=== PATIENT | male | born 1960 | race Caucasian/White ===

== ENCOUNTER 2018-04-01 15:23 | Emergency (ER) | payer MEDICAID ==
[~2018-04-01] VITALS: Ht 172.7 cm; Wt 79.4 kg
[~2018-04-01 15:23] MED LIST: ASPIR 8181 MG ORAL; JANUVIA100 MG ORAL; LISINOPRIL20 MG ORAL; METFORMIN HCL1000 M1 ORAL; PRAVASTATIN SOD20 M1 ORAL
[2018-04-01] MEDS ORDERED: Tetanus/Diptheria/Pertussis Vaccine 0.5ml Syr IM ONE (15:45)
[2018-04-01] MEDS ORDERED: Cephalexin 500mg cap ORAL ONE (15:45)
--- NOTE | 2018-04-01 15:53 | Emergency Room Report ---
History of Present Illness General Chief Complaint: Upper Extremity Injury Source: Patient Present Illness HPI Patient presents after a piece of concrete smashed his finger. Weight was about 80 pounds. Lost his nail. Bleeding was controlled with direct pressure. The pain is 10/10. He denies any numbness finger. It's been greater than 10 years since his last tetanus shot. Patient is right-handed. Seen here with [facility] 2016. H/O HTN. H/O DM. No somatic complaints. 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 Reviewed Nursing Documentation: PMH: Agreed; PSxH: Agreed Nursing Documentation-PMH Past Medical History: No History, Except For Hx Hypertension: Yes Hx Diabetes: Yes Review of Systems Constitutional: Denies: fever Musculoskeletal: Reports: see HPI Skin: Reports: see HPI Neurological: Reports: see HPI Endocrine: Reports: see HPI Hematologic/Lymphatic: Reports: see HPI Physical Exam Vital Signs Date Time Temp Pulse Resp B/P (MAP) Pulse Ox O2 Delivery O2 Flow Rate FiO2 04/01/18 15:34 98.3 79 16 124/87 95 Room Air 98.2 Sp02 EP Interpretation: reviewed, normal General Appearance: well appearing, no apparent distress, GCS 15 Head: normocephalic, atraumatic Eyes: bilateral eye normal inspection, bilateral eye PERRL ENT: hearing grossly normal, normal voice, moist mucus membranes Neck: full range of motion, supple Respiratory: no respiratory distress, speaking full sentences Cardiovascular #1: regular rate, rhythm Cardiovascular #2: 2+ radial (L) - good cap fill Gastrointestinal: normal inspection Musculoskeletal: back normal, gait/station normal, other - smashed fingertip with good vasc supply bilat. Nail avulsed. ROM good - tendons intact Neurologic: alert, oriented x3, motor strength/tone normal, sensory intact Psychiatric: mood/affect normal Skin: warm/dry, laceration - distal L middle finger, nail avulsed, bed without trauma Procedures Laceration/Wound Repair Laceration/Wound Repair : Consent: Verbal Wound Location: upper extremity Wound's Depth, Shape: irregular, flap, nail-avulsed, contused tissue Wound Length (cm): 2 Wound Explored: clean Irrigated w/ Saline (ccs): 40 Betadine Prep?: Yes Anesthesia: 0.5% Sensorcaine Volume Anesthetic (ccs): 3 Wound Debrided: moderate Wound Repaired With: sutures Suture Size/Type: 5:0, nylon Sterile Dressing Applied?: Yes Splint Applied?: No Sling Applied?: Yes Patient Tolerated: Well Complications: None Medical Decision Making Diagnostic Impression: Primary Impression: Crush injury to finger Qualified Codes: S67.10XA - Crushing injury of unspecified finger(s), initial encounter Additional Impressions: Open fracture Nail avulsion ER Course Patient presents with left middle finger crush injury. Differential includes open fracture, laceration, crush injury amongst others. X-rays indicated. In addition the patient will receive a digital block with bupivacaine. Also the patient will receive tetanus and also Keflex. Sutures are indicated. See procedure note. Some avulsed skin non-viable. debrided. Tolerated well. Discussed treatment plan. Improved with sling and dressing. Neurovasc checked by me - digital block still in effect. Patient stable for outpatient observation and treatment. Other X-Ray Diagnostic Results Other X-Ray Diagnostic Results : X-Ray ordered: left-hand # of Views/Limited Vs Complete: 3 View Indication: Other EP Interpretation: Yes Interpretation: no dislocation, other - fx STS Impression: Other Electronically Signed by: Electronically signed by Norman Gomez MD Last Vital Signs Date Time Temp Pulse Resp B/P (MAP) Pulse Ox O2 Delivery O2 Flow Rate FiO2 04/01/18 17:25 98.2 85 16 118/79 99 Room Air 208.8 Status: improved Disposition: HOME, SELF-CARE Condition: Improved Scripts Ibuprofen* (MOTRIN*) 600 Mg Tablet 600 MG ORAL Q6H PRN for For Pain, #16 TAB Prov: Norman Gomez M.D. 04/01/18 Tramadol Hcl* (ULTRAM*) 50 Mg Tablet 50 MG ORAL Q6H PRN for For Pain, #14 TAB 0 Refills Prov: Norman Gomez M.D. 04/01/18 Cephalexin* (KEFLEX*) 500 Mg Capsule 500 MG ORAL EVERY 6 HOURS, #28 CAP Prov: Norman Gomez M.D. 04/01/18 Norman Gomez M.D. Apr 01, 2018 15:53
[2018-04-01 16:27] VITALS: BP 118/79
--- NOTE | 2018-04-01 16:57 | Diagnostic Imaging Report ---
EXAM: XR Left Hand Complete, 3 or More Views CLINICAL HISTORY: TRAUMA TECHNIQUE: Frontal, lateral and oblique views of the left hand. COMPARISON: No relevant prior studies available. FINDINGS: Bones/joints: Minimally displaced, comminuted fracture of the distal tuft of the third digit distal phalanx. No other acute displaced fracture or dislocation identified. Mild degenerative narrowing in the interphalangeal joints. Soft tissues: Soft tissue swelling along the distal tip of the third digit. No radiopaque foreign body. Atherosclerotic calcifications in the wrist. IMPRESSION: 1. Minimally displaced, comminuted fracture of the distal tuft of the third digit distal phalanx. 2. Soft tissue swelling along the distal tip of the third digit.
[2018-04-01] MEDS ORDERED: traMADol 50mg tab ORAL ONE (17:15)
[2018-04-01] MEDS ORDERED: Bacitracin Oint UD TOPIC ONE ×2 (17:15)
[2018-04-01] MEDS ORDERED: IBUPROFEN600 MG ORAL (17:20)
[2018-04-01] MEDS ORDERED: TRAMADOL HCL50 MG ORAL (17:20)
[2018-04-01] MEDS ORDERED: CEPHALEXIN500 MG ORAL (17:20)
[2018-04-01 17:25] VITALS: BP 118/79
== END 2018-04-01 17:25 | disposition home or self-care (01) ==
LOC: EMR 16:00
DX: S61.213A Laceration without foreign body of left middle finger without damage to nail, initial encounter (principal); S62.602A Fracture of unspecified phalanx of right middle finger, initial encounter for closed fracture; W22.8XXA Striking against or struck by other objects, initial encounter; Y93.89 Activity, other specified; Y92.9 Unspecified place or not applicable; Z23 Encounter for immunization; E11.9 Type 2 diabetes mellitus without complications; I10 Essential (primary) hypertension
CPT/HCPCS: 12001; 73130; 90471; 90715; 99283; Z7502

== ENCOUNTER 2018-04-09 09:45 | Emergency (ER) | payer MEDICAID ==
[~2018-04-09] VITALS: Ht 167.6 cm; Wt 79.4 kg
[~2018-04-09 09:45] MED LIST changes: +CEPHALEXIN500 MG ORAL; +IBUPROFEN600 MG ORAL; +TRAMADOL HCL50 MG ORAL
[2018-04-09 09:59] VITALS: BP 174/90
[2018-04-09] MEDS ORDERED: Bacitracin Oint UD TOPIC ONE ×2 (10:15→10:16)
[2018-04-09 10:22] VITALS: BP 174/90
--- NOTE | 2018-04-09 10:30 | Emergency Room Report ---
History of Present Illness General Chief Complaint: Wound Recheck/Suture Removal Source: Patient, Medical Record Present Illness HPI Patient is a 57-year-old male who presented for wound check. The patient denied any severe pain. He had not been having any increased discharge or fever. Patient had been advised to return for suture removal. The patient has sutures placed approximately one week ago. Allergies: Coded Allergies: No Known Allergies (Unverified , 09/16/15) Patient History Past Medical History: see triage record Reviewed Nursing Documentation: PMH: Agreed; PSxH: Agreed Nursing Documentation-PMH Past Medical History: No History, Except For Hx Hypertension: Yes Hx Diabetes: Yes Review of Systems All Other Systems: negative except mentioned in HPI Physical Exam Vital Signs Date Time Temp Pulse Resp B/P (MAP) Pulse Ox O2 Delivery O2 Flow Rate FiO2 04/09/18 09:51 98.6 86 18 174/90 98 Room Air 98.6 General Appearance: well appearing, no apparent distress, alert, GCS 15 Head: normocephalic, atraumatic ENT: hearing grossly normal, normal voice Neck: full range of motion, supple Respiratory: no respiratory distress, speaking full sentences Musculoskeletal: normal inspection, other - healing wound, no infection Neurologic: alert, oriented x3, normal gait Psychiatric: mood/affect normal Skin: no rash, other - healed laceration, no infection Medical Decision Making Diagnostic Impression: Primary Impression: Encounter for removal of sutures ER Course Patient presented for wound check. Differential diagnosis included healed wound , cellulitis, wound dehiscence among others. The sutures were removed by me. The patient is advised to follow up with primary care doctor in 3-4 days for wound check. The patient is advised to keep the wound covered. Patient is advised to return if any worsening condition or if any changes in status that are concerning. Last Vital Signs Date Time Temp Pulse Resp B/P (MAP) Pulse Ox O2 Delivery O2 Flow Rate FiO2 04/09/18 10:22 98.6 86 18 174/90 98 Room Air 98.6 Status: improved Disposition: HOME, SELF-CARE Condition: Stable [facility]errals: [facility] (PCP) Patient Instructions: Suture Removal, Care After Aydin Castorena MD Apr 09, 2018 10:30
== END 2018-04-09 10:23 | disposition home or self-care (01) ==
LOC: EMR 10:15
DX: Z48.02 Encounter for removal of sutures (principal); I10 Essential (primary) hypertension; E11.9 Type 2 diabetes mellitus without complications
CPT/HCPCS: 99282

== ENCOUNTER 2019-01-07 23:31 | Emergency (ER) | payer MEDICAID ==
[~2019-01-07] VITALS: Ht 167.6 cm; Wt 77.1 kg
[2019-01-07] MEDS ORDERED: METOPROLOL TART25 MG ORAL (23:46)
[2019-01-07 23:50] VITALS: BP 198/93
--- NOTE | 2019-01-07 23:50 | NUR ---
ED Nurse Note: Pt ambulated to ED from home c/o 04/05 abdominal pain since 2099 today. Pt is A&Ox4, deneis sob or chest pain, VSS except for BP 200/79
[2019-01-08] MEDS ORDERED: Ketorolac 30mg Inj IV ONE
--- NOTE | 2019-01-08 00:05 | NUR ---
ED Nurse Note: IV ACCESS ESTABLISHED. BLOOD COLLECTED; SENT DOWN TO LAB.
[2019-01-08 00:20] LABS: BASOPHILS % (AUTO) 0.5 % (0.0-2.0); EOSINOPHILS % (AUTO) 1.2 % (0.0-3.0); HEMOGLOBIN 14.6 G/DL (14.2-18.0); LYMPHOCYTES % (AUTO) 27.3 % (20.0-45.0); MEAN CORPUSCULAR VOLUME 86 FL (80-99); MONOCYTES % (AUTO) 7.7 % (1.0-10.0); NEUTROPHILS % (AUTO) 63.3 % (45.0-75.0); PLATELET COUNT 200 K/UL (150-450); RED BLOOD COUNT 5.12 M/UL (4.70-6.10); RED CELL DISTRIBUTION WIDTH 12.4 % (11.6-14.8); WHITE BLOOD COUNT 9.2 K/UL (4.8-10.8)
--- NOTE | 2019-01-08 00:21 | Emergency Room Report ---
History of Present Illness General Chief Complaint: Abdominal Pain Source: Patient Present Illness HPI Patient presents with complaints of right flank and lower abdominal pain started approximately 9:00 this evening Pain is 8 out of 10 sharp denies any vomiting denies any diarrhea denies any constipation Denies any dysuria or frequency denies any rash Denies any trauma denies any change with position or exertion Allergies: Coded Allergies: No Known Allergies (Unverified , 09/16/15) Patient History Past Medical History: see triage record Pertinent Family History: none Reviewed Nursing Documentation: PMH: Agreed; PSxH: Agreed Nursing Documentation-PMH Past Medical History: No History, Except For Hx Hypertension: Yes Hx Diabetes: Yes Review of Systems All Other Systems: negative except mentioned in HPI Physical Exam Vital Signs Date Time Temp Pulse Resp B/P (MAP) Pulse Ox O2 Delivery O2 Flow Rate FiO2 01/07/19 23:43 98.4 70 14 198/93 (128) 95 Room Air Sp02 EP Interpretation: reviewed, normal General Appearance: well appearing, no apparent distress Head: normocephalic, atraumatic Eyes: bilateral eye PERRL, bilateral eye EOMI ENT: hearing grossly normal, normal pharynx, TMs + canals normal, uvula midline Neck: full range of motion, supple, no meningismus, no bony tend Respiratory: lungs clear, normal breath sounds, no rhonchi, no respiratory distress, no retraction, no accessory muscle use Cardiovascular #1: normal peripheral pulses, regular rate, rhythm, no edema, no gallop, no JVD, no murmur Gastrointestinal: normal bowel sounds, non tender, soft, no mass, no organomegaly, non-distended, no guarding, no hernia, no pulsatile mass, no rebound Genitourinary: no CVA tenderness Musculoskeletal: normal inspection Neurologic: oriented x3, responsive, 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, motor strength/ tone normal, sensory intact Psychiatric: mood/affect normal Skin: no rash Lymphatic: normal inspection, no adenopathy Medical Decision Making Diagnostic Impression: Primary Impression: Renal colic on right side ER Course With the history exam and presentation, multiple differentials considered, including but not limited to appendicitis, gastritis, cholecystitis, diverticulitis Patient's urine sample does show some evidence of blood CT imaging also reveals 4 mm kidney stone on the right side Patient's kidney function is mildly elevated does not appear septic or toxic was further hydrated On repeat evaluation and was discussed Regarding further inpatient care versus outpatient trial Patient has done significantly better and reports improved sensation and would like to attempt outpatient trial he will return with any worsening symptoms Labs Test 01/08/19 00:05 01/08/19 00:20 White Blood Count 9.2 K/UL (4.8-10.8) Red Blood Count 5.12 M/UL (4.70-6.10) Hemoglobin 14.6 G/DL (14.2-18.0) Hematocrit 44.0 % (42.0-52.0) Mean Corpuscular Volume 86 FL (80-99) Mean Corpuscular Hemoglobin 28.5 PG (27.0-31.0) Mean Corpuscular Hemoglobin Concent 33.2 G/DL (32.0-36.0) Red Cell Distribution Width 12.4 % (11.6-14.8) Platelet Count 200 K/UL (150-450) Mean Platelet Volume 6.3 FL (6.5-10.1) Neutrophils (%) (Auto) 63.3 % (45.0-75.0) Lymphocytes (%) (Auto) 27.3 % (20.0-45.0) Monocytes (%) (Auto) 7.7 % (1.0-10.0) Eosinophils (%) (Auto) 1.2 % (0.0-3.0) Basophils (%) (Auto) 0.5 % (0.0-2.0) Sodium Level 137 MMOL/L (136-145) Potassium Level 4.5 MMOL/L (3.5-5.1) Chloride Level 102 MMOL/L (98-107) Carbon Dioxide Level 28 MMOL/L (21-32) Anion Gap 7 mmol/L (5-15) Blood Urea Nitrogen 26 mg/dL (7-18) Creatinine 1.4 MG/DL (0.55-1.30) Estimat Glomerular Filtration Rate 52.1 mL/min (>60) Glucose Level 254 MG/DL (74-106) Calcium Level 9.0 MG/DL (8.5-10.1) Total Bilirubin 0.2 MG/DL (0.2-1.0) Aspartate Amino Transf (AST/SGOT) 15 U/L (15-37) Alanine Aminotransferase (ALT/SGPT) 14 U/L (12-78) Alkaline Phosphatase 71 U/L (46-116) Total Protein 6.7 G/DL (6.4-8.2) Albumin 3.7 G/DL (3.4-5.0) Globulin 3.0 g/dL Albumin/Globulin Ratio 1.2 (1.0-2.7) Lipase 287 U/L (73-393) Urine Color Pale yellow Urine Appearance Clear Urine pH 7 (4.5-8.0) Urine Specific [place] 1.005 (1.005-1.035) Urine Protein 1+ (NEGATIVE) Urine Glucose (UA) 3+ (NEGATIVE) Urine Ketones Negative (NEGATIVE) Urine Blood 2+ (NEGATIVE) Urine Nitrite Negative (NEGATIVE) Urine Bilirubin Negative (NEGATIVE) Urine Urobilinogen Normal MG/DL (0.0-1.0) Urine Leukocyte Esterase Negative (NEGATIVE) Urine RBC 2-4 /HPF (0 - 0) Urine WBC 0 /HPF (0 - 0) Urine Squamous Epithelial Cells Few /LPF (NONE/OCC) Urine Bacteria Few /HPF (NONE) CT/MRI/US Diagnostic Results CT/MRI/US Diagnostic Results : Impression CT abdomen pelvisCT ABDOMEN & PELVIS Without Contrast: Right hydroureteronephrosis secondaryto a 4 mmstone in the right UVJ. Punctate nonobstructive stones bilaterally. Left kidneyis not dilated. Bladder is unremarkable. No bowel obstruction. Last Vital Signs Date Time Temp Pulse Resp B/P (MAP) Pulse Ox O2 Delivery O2 Flow Rate FiO2 01/07/19 23:50 98.4 70 14 198/93 95 Room Air Status: improved Disposition: HOME, SELF-CARE Condition: Improved Scripts Tamsulosin HCl (Flomax) 0.4 Mg Cap.er.24h 0.4 MG ORAL DAILY for 7 Days, CAP Prov: Becky Aguilar DO 01/08/19 Hydrocodone Bit/Acetaminophen 5-325* (NORCO 5-325*) 1 Each Tablet 1 TAB ORAL Q6H PRN for For Pain, #14 TAB 0 Refills Prov: Becky Aguilar DO 01/08/19 Ibuprofen* (MOTRIN*) 600 Mg Tablet 600 MG ORAL Q8H PRN for For Pain, #20 TAB 0 Refills Prov: Becky Aguilar DO 01/08/19 Referrals: [facility] (PCP) Additional Instructions: Patient is provided with the discharge instructions notified to follow up with primary doctor in the next 2-3 days otherwise return to the er with any worsening symptoms. Please note that this report is being documented using Status Overload technology. This can lead to erroneous entry secondary to incorrect interpretation by the dictating instrument. Becky Aguilar DO Jan 08, 2019 00:21
[2019-01-08 00:33] LABS: ANION GAP 7 mmol/L (5-15); BLOOD UREA NITROGEN 26 mg/dL (7-18); CARBON DIOXIDE 28 MMOL/L (21-32); CHLORIDE 102 MMOL/L (98-107); CREATININE 1.4 MG/DL (0.55-1.30); POTASSIUM 4.5 MMOL/L (3.5-5.1); SODIUM 137 MMOL/L (136-145)
[2019-01-08 00:38] LABS: ALANINE AMINOTRANSFERASE 14 U/L (12-78); ALBUMIN 3.7 G/DL (3.4-5.0); ALBUMIN/GLOBULIN RATIO 1.2 (1.0-2.7); ALKALINE PHOSPHATASE 71 U/L (46-116); ASPARTATE AMINO TRANSFERASE 15 U/L (15-37); BILIRUBIN,TOTAL 0.2 MG/DL (0.2-1.0)
[2019-01-08 00:45] LABS: APPEARANCE,URINE CLEAR; BILIRUBIN, URINE NEGATIVE (NEGATIVE); COLOR,URINE PALE YELLOW; GLUCOSE, URINE (UA) 3+ (NEGATIVE); KETONES,URINE NEGATIVE (NEGATIVE); LEUKOCYTE ESTERASE ,URINE NEGATIVE (NEGATIVE); NITRITE,URINE NEGATIVE (NEGATIVE); PH,URINE 7 (4.5-8.0); PROTEIN,URINE 1+ (NEGATIVE); UROBILINOGEN,URINE NORMAL MG/DL (0.0-1.0)
[2019-01-08] MEDS ORDERED: Tamsulosin 0.4mg cap ORAL ONE (01:44)
[2019-01-08] MEDS ORDERED: FLOMAX0.4 MG ORAL (02:32)
[2019-01-08] MEDS ORDERED: NORCO 5-325 TA1 EACH ORAL (02:32)
[2019-01-08] MEDS ORDERED: IBUPROFEN600 MG ORAL (02:32)
[2019-01-08 02:43] VITALS: BP 130/80
--- NOTE | 2019-01-08 02:46 | NUR ---
discharged home with instruction and rx denies any pain iv dcd intact ambulating steady gait ,home with family
--- NOTE | 2019-01-08 09:39 | Diagnostic Imaging Report ---
Indication: Right flank pain for one day Technique: Spiral acquisitions obtained through the abdomen and pelvis. No oral or IV contrast utilized, per urinary stone protocol. Multiplanar reconstructions were generated. Total dose length product 650.3 mGycm. CTDIvol(s) 11.8 mGy. Dose reduction achieved using automated exposure control Comparison: none Findings: A 5 mm calculus projects at the right ureteral orifice. There is mild right hydroureter and mild right hydronephrosis. There is a 6 mm intrarenal calculus on the right. There is a 3 mm intrarenal calyceal calculus on the left as well. No left hydronephrosis, hydroureter, or ureteral calculus. Lack of IV contrast limits assessment of the renal parenchyma. No gross renal parenchymal mass or cyst demonstrated. Lack of IV contrast limits assessment of the other solid organs. The liver, gallbladder, bile ducts, pancreas, spleen, adrenals are unremarkable. No retroperitoneal or mesenteric mass or adenopathy. No pelvic mass or adenopathy. The appendix is normal. No evidence of diverticulosis or diverticulitis. No small bowel distention. No free or loculated intraperitoneal gas or fluid is evident. The distal esophagus, stomach, duodenum are unremarkable. The included lung bases demonstrate posterior dependent atelectatic changes and groundglass opacity. The heart is upper limits normal in size. The bones demonstrate minimal lumbar degenerative proliferative change. Impression: Positive for 5 mm distal right ureteral calculus. This results in mild hydronephrosis and hydroureter Bilateral nonobstructive intrarenal calyceal calculi as described Incidental findings as noted This agrees with the preliminary interpretation provided overnight by [facility] teleradiology service. The CT scanner at [facility] is accredited by the [employer] and the scans are performed using protocols designed to limit radiation exposure to as low as reasonably achievable to attain images of sufficient resolution adequate for diagnostic evaluation.
[2019-01-08] MEDS ORDERED: Tamsulosin 0.4mg cap ORAL SCH (21:00)
== END 2019-01-08 02:47 | disposition home or self-care (01) ==
LOC: EMR 23:54
DX: N20.0 Calculus of kidney (principal); I10 Essential (primary) hypertension; E11.9 Type 2 diabetes mellitus without complications
CPT/HCPCS: 36415; 74176; 80053; 81003; 83690; 85025; 96374; 96375; 99284; J0360; J1885; J2405; J7040

== ENCOUNTER 2020-08-19 12:56 | Emergency (ER) | payer MEDICAID ==
[~2020-08-19] VITALS: Ht 167.6 cm; Wt 79.4 kg
[~2020-08-19 12:56] MED LIST changes: +FLOMAX0.4 MG ORAL; +METOPROLOL TART25 MG ORAL; +NORCO 5-325 TA1 EACH ORAL
[2020-08-19 13:00] VITALS: BP 142/78
--- NOTE | 2020-08-19 13:07 | NUR ---
ED Nurse Note: Patient from home and walked in due to right 5th digit injury while he was installing water yesterday. Noted small amount of blood and bruising on nail bed. AAO x4 and able to move his fingers without difficulty.
--- NOTE | 2020-08-19 13:32 | NUR ---
ED Nurse Note: orthopedic technician with the patient for xray.
--- NOTE | 2020-08-19 14:07 | Diagnostic Imaging Report ---
EXAM: X-RAY XRAY Fingers 2-3v R CLINICAL HISTORY: Trauma with finger pain. COMPARISON: None FINDINGS: Total of 3 views of the right fifth finger were obtained. There is a fracture of the distal tuft nondisplaced. The rest of the bony appendages appear intact. Joint spaces are unremarkable. Surrounding soft tissue is normal. IMPRESSION: FIFTH DISTAL TUFT FRACTURE.
[2020-08-19] MEDS ORDERED: Bacitracin Oint UD TOPIC ONE ×2 (14:33→14:45)
--- NOTE | 2020-08-19 14:40 | Emergency Room Report ---
History of Present Illness General Chief Complaint: Upper Extremity Injury Source: Patient Present Illness HPI Patient states that yesterday he was moving a water heater and his right pinky finger was crushed between the water heater and the wall. He has pain at the end of the right pinky finger. He also has partial avulsion of the nail and abrasion/skin avulsion at the distal pinky. He has no other injuries or complaints. 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 Patient History Past Medical History: see triage record, DM, HTN Social History: Denies: smoking, alcohol use, drug use Reviewed Nursing Documentation: PMH: Agreed; PSxH: Agreed Nursing Documentation-PMH Past Medical History: No History, Except For Hx Hypertension: Yes Hx Diabetes: Yes Review of Systems All Other Systems: negative except mentioned in HPI Physical Exam Vital Signs Date Time Temp Pulse Resp B/P (MAP) Pulse Ox O2 Delivery O2 Flow Rate FiO2 08/19/20 13:00 98.2 82 15 142/78 98 Room Air Sp02 EP Interpretation: reviewed, normal General Appearance: no apparent distress, alert, GCS 15, non-toxic Head: normocephalic, atraumatic ENT: hearing grossly normal, normal voice Neck: normal inspection Respiratory: no respiratory distress, no retraction, no accessory muscle use, speaking full sentences Rectal: deferred Musculoskeletal: gait/station normal, other - R. distal pinky with swelling and ecchymosis. Partial nail avulsion but still overlying the nailbed. Macerated skin with irregular abrasion/skin avulsion. Neurologic: alert, motor strength/tone normal, oriented x3, sensory intact, responsive, speech normal Psychiatric: judgement/insight normal, memory normal, mood/affect normal, no suicidal/homicidal ideation Skin: other - See above in MSK exam. Procedures Splinting Splinting : Consent: Verbal Location: R. 5th finger Pre-Made Type: metal Pre-Proc Neuro Vasc Exam: normal Post-Proc Neuro Vasc Exam: normal Patient Tolerated: Well Complications: None Medical Decision Making Diagnostic Impression: Primary Impression: Fracture, finger, distal phalanx Additional Impressions: Finger nail contusion Finger abrasion ER Course This patient has a fracture of the distal phalanx. The patient also has associated skin abrasions and a partial nail avulsion. However, the nail is intact and protecting the subungual tissue of the nail. I do not see a tract to the fracture. Although, there could be an open component to the fracture. The wound was cleaned with soap and water and bacitracin was applied to the wound. The wound was dressed and a finger splint was placed for comfort and protection. I will place the patient on prophylactic antibiotics for concern of infection. The patient's tetanus shot has been updated within the last 5 years and this did not need updating. Patient was instructed to follow-up with his primary care physician and orthopedist. The patient is given close return precautions, wound care instructions and follow-up instructions. Last Vital Signs Date Time Temp Pulse Resp B/P (MAP) Pulse Ox O2 Delivery O2 Flow Rate FiO2 08/19/20 13:00 98.2 82 15 142/78 (99) 98 Room Air Status: improved Disposition: HOME, SELF-CARE Condition: Improved [facility]errals: [facility] ([facility]P) Eli Tapia DO Aug 19, 2020 14:40
[2020-08-19] MEDS ORDERED: IBUPROFEN600 M1 ORAL ×3 (14:42→14:53)
[2020-08-19] MEDS ORDERED: AUGMENTIN 875-1 EAC1 ORAL ×3 (14:42→14:53)
[2020-08-19 15:10] VITALS: BP 142/78
--- NOTE | 2020-08-19 15:11 | NUR ---
ED Nurse Note: Pt cleared by health care Provider for discharge. Splint applied on Rt hand. DC instructions/electronically sent prescription was given and explained to pt and verbalized understanding of teachings. All medical deviecs such as ID band removed. Pt is AAO x4, ambulatory and left with all personal belongings.
== END 2020-08-19 15:11 | disposition home or self-care (01) ==
LOC: EMR 13:29
DX: S62.636A Displaced fracture of distal phalanx of right little finger, initial encounter for closed fracture (principal); S60.151A Contusion of right little finger with damage to nail, initial encounter; W23.0XXA Caught, crushed, jammed, or pinched between moving objects, initial encounter; Y92.9 Unspecified place or not applicable; E11.9 Type 2 diabetes mellitus without complications; I10 Essential (primary) hypertension
CPT/HCPCS: 29130; 73140; Z7502; 99283